=== PATIENT | female | born 2000 | race Caucasian/White ===

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

== ENCOUNTER 2023-09-12 01:51 | Emergency (ER) | payer SELFPAY ==
[~2023-09-12] VITALS: Ht 149.9 cm; Wt 59.7 kg
[2023-09-12 01:53] VITALS: TEMP 98.7
[2023-09-12] MEDS ORDERED: IBUPROFEN 600 MG TABLET PO ONE (03:00)
[2023-09-12] MEDS ORDERED: IBUP-1554 PO (04:07)
[2023-09-12 04:15] VITALS: BP 120/68; PULSE 76; RESP 18
== END 2023-09-12 04:18 | disposition home or self-care (01) ==
LOC: EMS 01:53
DX: S63.610A Unspecified sprain of right index finger, initial encounter (principal); X58.XXXA Exposure to other specified factors, initial encounter; Y93.89 Activity, other specified; Y92.89 Other specified places as the place of occurrence of the external cause; Y99.8 Other external cause status
CPT/HCPCS: 99283

== ENCOUNTER 2024-06-17 07:59 | Emergency (ER) | payer MEDICAID ==
[~2024-06-17] VITALS: Ht 149.9 cm; Wt 58.6 kg
[~2024-06-17 07:59] MED LIST: IBUP-1554 PO
[2024-06-17 08:11] VITALS: TEMP 98.7
[2024-06-17] MEDS: OxyCODONE HCL 5 MG IR TABLET PO ONE (08:48)
[2024-06-17 09:05] LABS: BASOPHILS % (AUTO) 0.6 % (0.0-2.0); EOSINOPHILS % (AUTO) 1.3 % (1.0-6.0); HEMATOCRIT 38.5 % (36-46); HEMOGLOBIN 12.8 g/dL (12.0-16.0); LYMPHOCYTES # (AUTO) 2.5 K/uL (1.0-4.8); LYMPHOCYTES % (AUTO) 27.6 % (22.0-44.0); MEAN CORPUSCULAR HEMOGLOBIN 29.3 pg (26.0-34.0); MEAN CORPUSCULAR HGB CONC 33.3 G/dL (31.0-37.0); MEAN CORPUSCULAR VOLUME 88 fL (80-100); MONOCYTES # (AUTO) 0.7 K/uL (0.1-1.0); MONOCYTES % (AUTO) 7.5 % (2.0-9.0); NEUTROPHILS # (AUTO) 5.7 K/uL (1.8-7.7); PLATELET COUNT (AUTO) 282 K/uL (150-450); RED BLOOD CELL COUNT(AUTO) 4.38 MIL/uL (4.00-5.20); RED CELL DISTRIBUTION WIDTH 12.9 % (11.5-14.5)
[2024-06-17 09:14] LABS: ANION GAP 10 mmol/L (8-16); CALCIUM, TOTAL 8.9 mg/dL (8.8-10.5); CARBON DIOXIDE 25 mmol/L (22-29); CHLORIDE 103 mmol/L (98-107); CREATININE 0.77 mg/dL (0.60-1.30); GLOMERULAR FILTR. RATE CALC > 60 mL/min (>60); GLUCOSE,RANDOM 90 mg/dL (70-110); POTASSIUM 4.1 mmol/L (3.5-5.1); SODIUM SERUM 138 mmol/L (136-145); UREA NITROGEN, BLOOD 11 mg/dL (7-18)
[2024-06-17 09:39] LABS: APPEARANCE,URINE HAZY (CLEAR); BILIRUBIN,URINE NEGATIVE (NEGATIVE); COLOR,URINE YELLOW (YELLOW); GLUCOSE, URINE (UA) NEGATIVE (NEGATIVE); KETONES,URINE NEGATIVE (NEGATIVE); LEUKOCYTE ESTERASE ,URINE LARGE (NEGATIVE); NITRATE,URINE NEGATIVE (NEGATIVE); OCCULT BLOOD,URINE TRACE (NEGATIVE); PH,URINE 5.5 (5.0-8.0); PROTEIN,URINE TRACE mg/dL (NEGATIVE); SPECIFIC GRAVITIY, URINE 1.028 (1.003-1.030); UROBILINOGEN,URINE <=1.0 mg/dL (<=1.0)
[2024-06-17 09:46] LABS: HCG,QUAL URINE NEGATIVE (NEGATIVE)
[2024-06-17 09:51] LABS: BACTERIA,URINE Few /HPF (None Seen); RBC,URINE 0-2 /HPF (0-2); SQUAMOUS EPITHELIAL CELL,UR Few /LPF (None Seen)
[2024-06-17] MEDS: CEPHALEXIN MONOHYDRATE 500 MG CAPSULE PO ONE (10:03)
[2024-06-17] MEDS: LIDOCAINE 5% TRANSDERMAL PATCH TD ONE (13:25)
[2024-06-17] MEDS: KETOROLAC TROMETHAMINE 30 MG/ML VIAL IM ONE (13:25)
[2024-06-17 14:25] VITALS: BP 129/81; PULSE 84; RESP 18
[2024-06-17] MEDS ORDERED: LIDO700A15 TP (14:45)
[2024-06-17] MEDS ORDERED: IBUP-1492 PO (14:45)
[2024-06-17] MEDS ORDERED: CEPH-558 PO (14:45)
[2024-06-17] MEDS ORDERED: ACET-2247 PO (14:45)
== END 2024-06-17 15:28 | disposition home or self-care (01) ==
LOC: EMS 07:59
DX: S39.012A Strain of muscle, fascia and tendon of lower back, initial encounter (principal); N39.0 Urinary tract infection, site not specified; X50.3XXA Overexertion from repetitive movements, initial encounter; Y93.89 Activity, other specified; Y92.89 Other specified places as the place of occurrence of the external cause; Y99.8 Other external cause status
CPT/HCPCS: 99285; 72148; 80048; 81001; 85025; 36415; 87086; 87186; 96372; 84703; J1885